=== PATIENT | female | born 1970 | race Caucasian/White ===

== ENCOUNTER 2024-06-08 13:51 | Emergency (ER) | payer OTHER, SELFPAY ==
[2024-06-08 14:06] VITALS: BP 158/93
[2024-06-08 14:29] LABS: % Basophils 0.8 % (0-2); % Eosinophils 2.4 % (0-6); % Immature Granulocytes 0.2 % (0-0.5); % Lymphocytes 29.7 % (20.5-51.1); % Monocytes 5.8 % (1.7-9.3); % Neutrophils 61.1 % (42.2-75.2); Absolute Eosinophils 0.1 10^3/uL (0-0.7); Absolute Lymphocytes 1.6 10^3/uL (1.2-3.4); Absolute Monocytes 0.3 10^3/uL (0.1-0.6); Absolute Neutrophils 3.3 10^3/uL (1.4-6.5); Hematocrit 36.9 % (37.0-47.0); Hemoglobin 12.3 g/dL (12.0-16.0); Mean Corp Hgb Conc. 33.3 g/dL (33.0-37.0); Mean Corpuscular Hgb 30.1 pg (27.0-31.0); Mean Corpuscular Volume 90.4 fL (81.0-99.0); Nucleated Red Blood Cells % 0 %; Platelet Count 257 10^3/uL (130-400); Red Blood Cell Count 4.08 10^6/uL (4.20-5.40); Red Cell Dist. Width 13.2 % (11.5-14.5); White Blood Cell Count 5.3 10^3/uL (4.8-10.8)
[2024-06-08 14:52] LABS: NT-proBNP 44.7 pg/ml; Troponin I < 0.012 ng/ml
[2024-06-08 15:00] LABS: ALT (SGPT) 29 U/L (0-35); AST (SGOT) 24 U/L (14-36); Albumin 4.1 g/dl (3.5-5.0); Alkaline Phosphatase 110 U/L (38-126); Blood Urea Nitrogen 15 mg/dl (7-17); Calcium 9.6 mg/dl (8.4-10.2); Carbon Dioxide 27 mmol/L (22-30); Chloride 107 mmol/L (98-107); Glucose 102 mg/dl (70-99); Lipase 102 U/L (23-300); Potassium 4.2 mmol/L (3.5-5.1); Sodium 140 mmol/L (135-145); Total Bilirubin 0.5 mg/dl (0.2-1.3); Total Protein 6.8 g/dl (6.3-8.2); eGFR > 60.00
--- NOTE | 2024-06-08 16:42 | ED.GENMED ---
History of Present Illness
General
Chief Complaint: Blood Pressure Problem
Source: patient
Exam Limitations: none
Time Seen by Provider: 06/08/24 16:41
History of Present Illness
History of Present Illness:
54yoF with no significant past medical history presenting for evaluation of elevated blood pressure. Patient has been experiencing L ankle swelling for about a week. She is also having some stomach upset over the past few days which feels like she
has to have a bowel movement. She has had 1 episode of diarrhea. She denies any overt abdominal pain, nausea, or vomiting. She was seen by the school nurse today due to her symptoms. Her blood pressure was checked which was elevated at 190/100.
She was told to follow-up with her PCP. She called her PCP and was sent to the ED for evaluation. Patient denies any headache, visual changes, chest pain, shortness of breath. Patient states her blood pressure has been elevated in the past but
she has never required medications. She checks her blood pressure regularly at home which typically ranges between 120-130/80-90.
Past History
Past History
ED Past Medical History: None
ED Past Surgical History: None
Social History
Tobacco: Non-smoker
Alcohol: Occasional
Personal:
Living: with family
Phy Exam
General Physical Exam
General Presentation: well appearing and no apparent distress
General age: appears stated age
General Skin: warm and dry
General Habitus: normal
General Mental: alert
ENT Exam
ENT Exam: normocephalic
Cardiovascular Exam
Cardiovascular Exam: regular rate/rhythm, no edema and no murmur
Pulmonary Exam
Pulmonary Exam: lungs clear, no respiratory distress, no rales, no crackles, no rhonchi and no wheezing
Neurological Exam
Neurological Exam: alert
Shruthi Coma Scale
Eye Opening: Spontaneous
Verbal Response: Oriented
Motor Response: Obeys Commands
GCS Total Score: 15
Musculoskeletal Exam
Musculoskeletal Exam: other (No pitting edema or skin changes noted to LLE. ROM of ankle intact. 2+ DP pulse.)
Skin Exam
Skin Exam: normal color and warm/dry
Psychiatric Exam
Psychiatric Exam: normal mood/affect
Course
Orders/Labs/Results
Orders:
Orders
06/08/24 14:10
EKG [Electrocardiogram (*1)] Urgent
Reason for Study: Hypertension, Benign
06/08/24 14:11
EKG- Treatment ONCE
06/08/24 14:23
Complete Blood Count/With Diff Urgent
Comprehensive Metabolic Panel Urgent
Lipase Urgent
NT-proBNP Urgent
Troponin I Urgent
06/08/24 16:55
Venous Doppler Lwr Ext Left [US Periph Venous LOWER Ext LT] Urgent
Comment:
Reason For Exam: L ankle swelling
Abnormal Lab Results
06/08/24
14:23
RBC 4.08 L 10^6/uL
(4.20-5.40)
Hct 36.9 L %
(37.0-47.0)
MPV 11.0 H fL
(7.4-10.4)
Glucose 102 H mg/dl
(70-99)
06/08/24 14:23
06/08/24 14:23
Vital Signs
Initial and Last Documented VS:
Initial Vital Signs
Temp Pulse Resp BP Pulse Ox
98.8 F 95 18 158/93 100
06/08/24 14:06 06/08/24 14:06 06/08/24 14:06 06/08/24 14:06 06/08/24 14:06
Last Documented Vital Signs
Temp Pulse Resp BP Pulse Ox
98.8 F 66 16 137/86 97
06/08/24 14:06 06/08/24 18:53 06/08/24 18:53 06/08/24 18:53 06/08/24 18:54
MDM/Problems Addressed
Differential Diagnosis Includes:
54yoF here with elevated BP of 190/100 at the nurse's office this afternoon. C/o L ankle swelling x 1 week and stomach upset x several days. No CP/SOB. No headache or vision changes. BP 158/93 on arrival. Remainder of vitals are normal. She is
well-appearing in no acute distress. No pitting edema or skin changes noted to the LLE and palpable pulse is present. Differential includes but is not limited to: Asymptomatic hypertension, hypertensive urgency, hypertensive emergency, DVT
Initial ED plan: Cardiac labs and EKG obtained in triage. EKG shows normal sinus rhythm without ischemic changes. Troponin and BNP normal. Renal function within normal limits. Will check venous duplex.
*EKG
Interpreted by ED Provider?: Yes
EKG Intrepretation Date: 06/08/24
Heart Rate: 70
Rate: normal
Rhythm: sinus and sinus arrhythmia
[place]: normal axis
Interval: normal interval
QRS Pattern: normal QRS
Ischemia: no ischemia
*Critical Care Note
Total Time (30-74mins, 75-104mins- exclusive of procedures): Not Applicable
Update Note
Update Note:
Venous duplex is negative for DVT. Repeat blood pressure 137/86 without intervention. No evidence of end organ dysfunction on labs. She is stable for discharge. Patient advised to follow-up closely with her PCP and ED return precautions
discussed. Patient in agreement with plan and left in stable condition.
ED Attending Note
-
Portions of this chart may have been created with voice recognition software.� Occasional wrong word or��sound alike� substitutions may have occurred due to the inherent limitations of voice recognition software.
Discharge Plan
Departure
Patient Disposition: Home (Routine Discharge)
Date of Disposition: 06/08/24
Time of Disposition: 19:01
Patient with high blood pressure during this ER visit?: Yes
Discharge Problem:
Elevated blood pressure reading, Left ankle swelling
Instructions: Checking your blood pressure at home
Prescriptions:
No Action
No Meds
tranexamic acid [Lysteda] 650 MG tablet
650 mg PO Q8H Qty: 20 0RF
Rx Instructions:
Please take 2 tabs every 8 hours for up to 5 days
Referrals:
Jaime Heard MD [Family Provider] -
Activity Restrictions/Additional Instructions:
Please call your family doctor on Tuesday to schedule a follow-up appointment next week. Return to the ER with any new or worsening symptoms.
Interventions
Interventions:
*Risk Screen - Suicide Last Done: 06/08/24 14:06
*General Assessment Last Done: 06/08/24 14:06
*ED COVID-19 Vaccine History Last Done: 06/08/24 14:06
*Nursing Disposition Last Done: 06/08/24 19:18
ED- Cardiac Assessment Last Done: 06/08/24 18:54
ED- Neurological Assessment Last Done: 06/08/24 18:54
ED- Pulmonary Assessment Last Done: 06/08/24 18:54
Discharge Date and Time
Discharge Date/Time: 06/08/24 19:19
Print Language: TRISTANIAN
[2024-06-08 18:53] VITALS: BP 137/86
== END 2024-06-08 19:19 | disposition home or self-care (01) ==
LOC: EMR 13:51
PROVIDERS: Emergency Medicine; EMERGENCY PHYSICIAN Emergency Medicine; FAMILY PHYSICIAN Family Medicine
DX: R22.42 Localized swelling, mass and lump, left lower limb (principal); I10 Essential (primary) hypertension
CPT/HCPCS: 99285; 80053; 83690; 83880; 84484; 85025; 93005; 93971